=== PATIENT | male | born 1985 | race Caucasian/White ===

== ENCOUNTER 2020-01-03 14:04 | Emergency (ER) | payer OTHER, SELFPAY ==
[2020-01-03] MEDS ORDERED: Lidocaine Viscous Sol 2% 15 ml UD Cup ONE (16:00)
[2020-01-03] MEDS ORDERED: Mag-Al Plus 1200 MG/1200 MG/120 MG/30 ML UDCUP ONE (16:00)
--- NOTE | 2020-01-03 16:00 | RAD ---
CHEST 1 VIEW RIGHT RIBS 2 VIEWS: HISTORY: Right rib pain today following injury from a fall yesterday. FINDINGS: No evidence for rib fracture. No pneumothorax or pleural effusion. Heart size is normal. IMPRESSION: No convincing evidence for acute rib fracture. No pleural effusion or pneumothorax. POS: [facility]
== END 2020-01-03 16:30 | disposition home or self-care (01) ==
LOC: MADERS 14:04
DX: S20.221A Contusion of right back wall of thorax, initial encounter (principal); K22.2 Esophageal obstruction; K21.9 Gastro-esophageal reflux disease without esophagitis; F17.220 Nicotine dependence, chewing tobacco, uncomplicated; W01.0XXA Fall on same level from slipping, tripping and stumbling without subsequent striking against object, initial encounter

== ENCOUNTER 2022-02-11 18:05 | Emergency (ER) | payer SELFPAY ==
[2022-02-11 18:25] LABS: Bilirubin Negative (Negative); Blood, Urine Negative (Negative); Glucose, Urine (Dipstick) Negative (Negative); Ketone, Urine Negative (Negative); Leukocyte Negative (Negative); Nitrite Negative (Negative); Protein, Urine (Dipstick) Negative (Neg-Trace); Urobilinogen 0.2 mg/dL (Less than 2); pH, Urine 6.5 (5.0-9.0)
[2022-02-11 18:28] LABS: Clarity Clear (Clear); Specific Gravity, Urine 1.003 (1.002-1.036)
[2022-02-11] MEDS ORDERED: Ketorolac Tromethamine 30 MG/ML VIAL ONE (19:20)
[2022-02-11] MEDS ORDERED: Sodium Chloride 0.9% 1,000 ML ONE (19:21)
[2022-02-11] MEDS ORDERED: NS 0.9% w/ 20 MEQ KCL 0 ML ONE (19:21)
== END 2022-02-11 20:22 | disposition home or self-care (01) ==
LOC: MADERS 18:05
DX: M54.50 Low back pain, unspecified (principal); R33.9 Retention of urine, unspecified; K21.9 Gastro-esophageal reflux disease without esophagitis; F17.220 Nicotine dependence, chewing tobacco, uncomplicated
CPT/HCPCS: 51798; 74176; 81003; 96361; 96374; J1885; J3480; J7050

== ENCOUNTER 2023-04-30 10:30 | Emergency (ER) | payer SELFPAY ==
[2023-04-30 11:36] LABS: ALT (SGPT) 44 U/L (8-55); AST (SGOT) 54 U/L (5-34); Albumin 4.6 g/dL (3.5-5.0); Alcohol 65.8 mg/dL (Less than 10); Alkaline Phosphatase 75 U/L (40-110); Anion Gap 16 mmol/L (10-20); BUN (Urea Nitrogen) Less than 4 mg/dL (8.9-20.6); Bilirubin, Total 1.1 mg/dL (0.2-1.2); Calc. Creatinine Clearance 0 mL/min (70-130); Calcium 9.9 mg/dL (7.8-10.44); Carbon Dioxide 27 mmol/L (22-29); Chloride 99 mmol/L (98-107); Estimated GFR 122; Globulin 2.2 g/dL (2.4-3.5); Glucose 90 mg/dL (70-105); Magnesium 1.8 mg/dL (1.6-2.6); Potassium 3.6 mmol/L (3.5-5.1); Protein, Total 6.8 g/dL (6.0-8.3); Sodium 138 mmol/L (136-145)
[2023-04-30 11:42] LABS: Hematocrit 48.8 % (42.0-52.0); Hemoglobin 16.2 g/dL (14.0-18.0); Mean Corpuscular HGB CONC 33.1 g/dL (32.0-36.0); Mean Corpuscular Hemoglobin 32.8 pg (27.0-31.0); Mean Corpuscular Volume 99.2 fl (78.0-98.0); Mean Platelet Volume 6.8 fL (7.4-10.4); Platelet Count 217 10x3/uL (130-400); Prothrombin Time 13.6 sec (12.0-14.7); RBC Distribution Width 12.1 % (11.5-14.5); Red Blood Cell (RBC) Count 4.92 mill/uL (4.70-6.10); Troponin I Less than 0.010 ng/mL (< 0.028); White Blood Cell (WBC) Count 3.7 10x3/uL (4.8-10.8)
[2023-04-30 11:57] LABS: Anisocytosis SLIGHT = 6-15 cells (100X) (0-5/hpf); Band 2 % (5-11); Eosinophils 8 % (0-10); Lymphocytes 24 % (21-51); MDiff Complete? YES; Manual Diff?? YES; Monocytes 8 % (0-10); Neutrophil 58 % (42-75)
[2023-04-30 11:58] LABS: Platelet Adequacy Comment Appears Adequate
[2023-04-30 12:31] LABS: Bilirubin Negative (Negative); Blood, Urine Negative (Negative); Clarity Clear (Clear); Glucose, Urine (Dipstick) Negative (Negative); Ketone, Urine Trace mg/dL (Negative); Leukocyte Negative (Negative); Nitrite Negative (Negative); Protein, Urine (Dipstick) Trace mg/dL (Neg-Trace); Specific Gravity, Urine 1.025 (1.005-1.030); pH, Urine 6.5 (5.0-9.0)
[2023-04-30 12:35] LABS: Bacteria/HPF Rare-Few HPF (None Seen); CAUTI Indications for Culture Fever or rigors; RBC/HPF 0-3 HPF (0-3); Squamous Epithelial 0-3 HPF (0-3); WBC/HPF 0-3 HPF (0-3)
[2023-04-30 12:36] LABS: Urine Culture Reflex No No
[2023-04-30 12:44] LABS: Amphetamine Not Detected (NotDetected); Barbiturates Screen Not Detected (NotDetected); Benzodiazepine Screen Not Detected (NotDetected); Cocaine Metabolite Screen Not Detected (NotDetected); Methadone Not Detected (NotDetected); Methamphetamine Not Detected (NotDetected); Opiate Screen Not Detected (NotDetected); Oxycodone Screen Not Detected (NotDetected); Phencyclidine (PCP) Not Detected (NotDetected); THC/Cannabinoid Screen Not Detected (NotDetected); Tricyclic Screen Not Detected (NotDetected)
[2023-04-30] MEDS ORDERED: Aspirin 325 MG TAB ONE (13:02)
== END 2023-04-30 17:00 | disposition short-term general hospital (02) ==
LOC: MADERS 10:30
DX: R53.1 Weakness (principal); F17.220 Nicotine dependence, chewing tobacco, uncomplicated; K21.9 Gastro-esophageal reflux disease without esophagitis
CPT/HCPCS: 36416; 70450; 80053; 80306; 80307; 81001; 83735; 84484; 85025; 85610; 85730; 93005; 94760